=== PATIENT | male | born 1945 | race Caucasian/White ===

== ENCOUNTER → 2022-10-17 | Day surgery (SDC) | payer MEDICARE ==
[2022-10-17 15:40] VITALS: BP 106/58; TEMP 97.8
== END | disposition home or self-care (01) ==
LOC: CSHRAD 09:48
PROVIDERS: ATTEND Neurological Surgery
DX: R29.6 Repeated falls (principal); R26.89 Other abnormalities of gait and mobility; R53.1 Weakness
CPT/HCPCS: 62305; 72126; 72129; 72132